=== PATIENT | male | born 1985 | race Caucasian/White ===

== ENCOUNTER → 2021-11-08 10:20 | Outpatient (CLI) | payer SELFPAY | DX: M85.9 Disorder of bone density and structure, unspecified (principal); M62.830 Muscle spasm of back | CPT/HCPCS: 76499 ==

== ENCOUNTER → 2022-02-20 | Outpatient (CLI) | payer SELFPAY | END | disposition home or self-care (01) | DX: Z71.3 Dietary counseling and surveillance (principal) | CPT/HCPCS: 76499 ==